=== PATIENT | male | born 1940 | race Caucasian/White ===

== ENCOUNTER 2016-07-24 17:57 | Emergency (ER) | payer MEDICARE, OTHER ==
[~2016-07-24 17:57] MED LIST: ASPIRIN CHEWABL81 MG PO; CARDURA 2MG TAB2 MG GT; COLACE 100MG C100 MG GT; KEPPRA 100100 MG/1 M GT; LIPITOR TAB 2020 MG GT; LISINOPRIL2.5 MG GT; METOPROLOL TART25 MG GT; MULTIVITAMINS1 EAC8 GT; NEURONTIN 400400 MG GT; OSMOLITE 1.21000 ML GT; PLAVIX 75 MG TA75 MG GT; PROMOD 946 ML BT1 EA GT; SENNA8.6 MG GT; TIZANIDINE HCL2 MG GT
[2016-07-24 18:52] LABS: HEMOGLOBIN 12.5 gm/dl (14.0-17.5); RED BLOOD COUNT 4.91 M/UL (4.20-5.50); WHITE BLOOD COUNT 19.1 K/UL (4.5-11.0)
[2016-07-24 19:21] LABS: BUN/CREATININE RATIO 29 (0-10)
== END 2016-07-24 18:55 ==
LOC: ER1 17:57
PROVIDERS: Emergency Medicine
DX: G40.901 Epilepsy, unspecified, not intractable, with status epilepticus (principal); A41.9 Sepsis, unspecified organism
CPT/HCPCS: 36415; 70450; 71010; 80053; 82550; 82553; 82962; 83605; 83874; 83880; 84484; 85025; 85610; 85730; 87040; 93005; 96361; 96372; 96374; 96375; 99291; J0692; J1265; J1953; J2060; J3370; J7050

== ENCOUNTER 2016-10-01 21:25 | Inpatient (IN) | payer MEDICARE, OTHER ==
[~2016-10-01] VITALS: Ht 177.8 cm; Wt 58.5 kg
[2016-10-01 22:29] LABS: HEMOGLOBIN 13.3 gm/dl (14.0-17.5); RED BLOOD COUNT 5.16 M/UL (4.20-5.50); WHITE BLOOD COUNT 17.2 K/UL (4.5-11.0)
[2016-10-01 22:46] LABS: BUN/CREATININE RATIO 31 (0-10)
[2016-10-02 05:55] LABS: HEMOGLOBIN 13.2 gm/dl (14.0-17.5); RED BLOOD COUNT 5.08 M/UL (4.20-5.50); WHITE BLOOD COUNT 14.5 K/UL (4.5-11.0)
[2016-10-02 06:13] LABS: BUN/CREATININE RATIO 30 (0-10)
[2016-10-02] MEDS ORDERED: SODIUM CHLORI1000 MG PEG (21:49)
[2016-10-02] MEDS ORDERED: MILK OF MAGNESI30 ML GT (21:50)
[2016-10-02] MEDS ORDERED: TYLENOL W/CODEIN1 E1 PO (21:51)
[2016-10-02] MEDS ORDERED: DULCOLAX10 MG PR ×2 (21:52→21:55)
[2016-10-02] MEDS ORDERED: BIOTENE MOIST44.3 ML MM (21:52)
[2016-10-03 01:02] LABS: ACINETOBACTER BAUMANNII Not Detected (Negative); CANDIDA ALBICANS Not Detected (Negative); CANDIDA KRUSEI Not Detected (Negative); CANDIDA TROPICALIS Not Detected (Negative); ENTEROCOCCUS Not Detected (Negative); ESCHERICHIA COLI Not Detected (Negative); HAEMOPHILUS INFLUENZAE Not Detected (Negative); KLEBSIELLA OXYTOCA Not Detected (Negative); KLEBSIELLA PNEUMONIAE Not Detected (Negative); KPC-CARBAPENEM-RESISTANCE GENE Not Detected (Negative); PROTEUS Not Detected (Negative); PSEUDOMONAS AERUGINOSA Not Detected (Negative); SERRATIA MARCESANS Not Detected (Negative); STAPHYLOCOCCUS AUREUS Not Detected (Negative); STREP AGALACTIAE (GROUP B) Not Detected (Negative); STREP PYOGENES (GROUP A) Not Detected (Negative); STREPTOCOCCUS Not Detected (Negative); vanA/B (VANCOMYCIN RESIST GENE Not Detected (Negative)
[2016-10-03 02:54] LABS: STAPHYLOCOCCUS DETECTED (Negative); mecA (METHICILLIN RESIST GENE DETECTED (Negative)
[2016-10-03 06:55] LABS: HEMOGLOBIN 10.6 gm/dl (14.0-17.5); RED BLOOD COUNT 4.16 M/UL (4.20-5.50); WHITE BLOOD COUNT 8.3 K/UL (4.5-11.0)
[2016-10-03 07:06] LABS: BUN/CREATININE RATIO 48 (0-10)
[2016-10-04 05:33] LABS: HEMOGLOBIN 10.6 gm/dl (14.0-17.5); RED BLOOD COUNT 4.15 M/UL (4.20-5.50)
[2016-10-04 05:35] LABS: WHITE BLOOD COUNT 6.2 K/UL (4.5-11.0)
[2016-10-04 05:57] LABS: BUN/CREATININE RATIO 38 (0-10)
== END 2016-10-04 08:00 | DRG 177 ==
LOC: ER1 21:25 → M/S 10-02 02:00 → ZEROF 10-02 02:00 → M/S 10-02 20:50
PROVIDERS: Family Medicine; Internal Medicine; ADMIT Emergency Medicine
DX: J69.0 Pneumonitis due to inhalation of food and vomit (principal); J96.21 Acute and chronic respiratory failure with hypoxia; G93.41 Metabolic encephalopathy; I69.351 Hemiplegia and hemiparesis following cerebral infarction affecting right dominant side; E87.1 Hypo-osmolality and hyponatremia; I50.22 Chronic systolic (congestive) heart failure; I69.320 Aphasia following cerebral infarction; I69.391 Dysphagia following cerebral infarction; R13.10 Dysphagia, unspecified; I69.398 Other sequelae of cerebral infarction; M24.541 Contracture, right hand; E87.5 Hyperkalemia; E86.0 Dehydration; G40.909 Epilepsy, unspecified, not intractable, without status epilepticus; I25.10 Atherosclerotic heart disease of native coronary artery without angina pectoris; I11.0 Hypertensive heart disease with heart failure; I73.9 Peripheral vascular disease, unspecified; E78.5 Hyperlipidemia, unspecified; K21.9 Gastro-esophageal reflux disease without esophagitis; G47.33 Obstructive sleep apnea (adult) (pediatric); F03.90 Unspecified dementia, unspecified severity, without behavioral disturbance, psychotic disturbance, mood disturbance, and anxiety; I25.2 Old myocardial infarction; Z95.1 Presence of aortocoronary bypass graft; Z87.820 Personal history of traumatic brain injury; Z66 Do not resuscitate; Z74.01 Bed confinement status; Z93.1 Gastrostomy status; Z79.02 Long term (current) use of antithrombotics/antiplatelets; Z79.82 Long term (current) use of aspirin; Z79.1 Long term (current) use of non-steroidal anti-inflammatories (NSAID); Z79.891 Long term (current) use of opiate analgesic; Z79.899 Other long term (current) drug therapy; Z89.611 Acquired absence of right leg above knee; Z98.890 Other specified postprocedural states
CPT/HCPCS: 36415; 70450; 71010; 80048; 80053; 81001; 83605; 84132; 85025; 85027; 85610; 87040; 87070; 87077; 87081; 87150; 87186; 87205; 94640; 94664; 96365; 96366; 96367; 96375; 96376; 99285; C9113; J1650; J2543; J3370; J7030; J7050; J7070

== ENCOUNTER 2016-10-09 18:21 | Inpatient (IN) | payer MEDICARE, OTHER ==
[~2016-10-09] VITALS: Ht 177.8 cm; Wt 58.5 kg
[~2016-10-09 18:21] MED LIST changes: +BIOTENE MOIST44.3 ML MM; +DULCOLAX10 MG PR; +MILK OF MAGNESI30 ML GT; +SODIUM CHLORI1000 MG PEG; +TYLENOL W/CODEIN1 E1 PO
[2016-10-09 18:49] LABS: RED BLOOD COUNT 5.07 M/UL (4.20-5.50); WHITE BLOOD COUNT 16.4 K/UL (4.5-11.0)
[2016-10-09 19:02] LABS: BUN/CREATININE RATIO 27 (0-10)
[2016-10-09 19:06] LABS: HEMOGLOBIN 13.1 gm/dl (14.0-17.5)
[2016-10-10 07:09] LABS: HEMOGLOBIN 11.9 gm/dl (14.0-17.5); RED BLOOD COUNT 4.64 M/UL (4.20-5.50); WHITE BLOOD COUNT 17.4 K/UL (4.5-11.0)
[2016-10-10] MEDS ORDERED: TYLENOL W/CODEIN1 E1 GT (12:06)
[2016-10-11 05:24] LABS: WHITE BLOOD COUNT 14.1 K/UL (4.5-11.0)
[2016-10-11 05:38] LABS: HEMOGLOBIN 9.9 gm/dl (14.0-17.5); RED BLOOD COUNT 3.88 M/UL (4.20-5.50)
[2016-10-12 03:53] LABS: RED BLOOD COUNT 3.56 M/UL (4.20-5.50); WHITE BLOOD COUNT 12.2 K/UL (4.5-11.0)
[2016-10-13 05:54] LABS: HEMOGLOBIN 8.6 gm/dl (14.0-17.5); RED BLOOD COUNT 3.38 M/UL (4.20-5.50); WHITE BLOOD COUNT 13.2 K/UL (4.5-11.0)
[2016-10-14] MEDS ORDERED: AUGMENTIN 875-1 EACH PO (19:22)
[2016-10-14] MEDS ORDERED: IPRAT-ALBUT 0.5-3 ML INH (19:23)
[2016-10-14] MEDS ORDERED: ROBINUL TAB 1 MG1 MG PO (19:26)
== END 2016-10-14 22:50 | disposition home health service (06) | DRG 871 ==
LOC: ER1 18:21 → PROG CARE 21:16 → ZEROF 21:16 → PROG CARE 10-10 17:35
PROVIDERS: Family Medicine; Internal Medicine Cardiovascular Disease; Internal Medicine Nephrology; ADMIT Internal Medicine
DX: A41.9 Sepsis, unspecified organism (principal); J96.21 Acute and chronic respiratory failure with hypoxia; N17.0 Acute kidney failure with tubular necrosis; R53.2 Functional quadriplegia; R65.21 Severe sepsis with septic shock; J69.0 Pneumonitis due to inhalation of food and vomit; I50.22 Chronic systolic (congestive) heart failure; E87.1 Hypo-osmolality and hyponatremia; Z66 Do not resuscitate; E53.0 Riboflavin deficiency; E87.4 Mixed disorder of acid-base balance; M62.82 Rhabdomyolysis; Z51.5 Encounter for palliative care; T83.098A Other mechanical complication of other urinary catheter, initial encounter; R31.0 Gross hematuria; E86.0 Dehydration; E86.1 Hypovolemia; Y92.239 Unspecified place in hospital as the place of occurrence of the external cause; F03.90 Unspecified dementia, unspecified severity, without behavioral disturbance, psychotic disturbance, mood disturbance, and anxiety; G47.33 Obstructive sleep apnea (adult) (pediatric); G40.909 Epilepsy, unspecified, not intractable, without status epilepticus; I25.10 Atherosclerotic heart disease of native coronary artery without angina pectoris; Z95.1 Presence of aortocoronary bypass graft; K21.9 Gastro-esophageal reflux disease without esophagitis; I73.9 Peripheral vascular disease, unspecified; Z74.01 Bed confinement status; R41.82 Altered mental status, unspecified; Z89.611 Acquired absence of right leg above knee; E87.5 Hyperkalemia; Z87.820 Personal history of traumatic brain injury; Y95 Nosocomial condition; Z93.1 Gastrostomy status; I27.2 Other secondary pulmonary hypertension; M60.9 Myositis, unspecified; S90.822A Blister (nonthermal), left foot, initial encounter; D50.9 Iron deficiency anemia, unspecified; Z88.8 Allergy status to other drugs, medicaments and biological substances; Z79.82 Long term (current) use of aspirin; Z79.891 Long term (current) use of opiate analgesic; Z79.1 Long term (current) use of non-steroidal anti-inflammatories (NSAID); Z79.899 Other long term (current) drug therapy
CPT/HCPCS: ECHO; 36415; 36600; 70450; 71010; 80048; 80053; 80202; 81001; 82550; 82553; 82607; 82800; 82803; 83605; 83690; 83735; 83874; 83880; 84300; 84439; 84443; 84484; 85025; 85027; 85610; 85730; 87040; 87070; 87081; 87086; 87205; 93005; 93306; 94640; 94660; 94664; 94668; 96361; 96374; 96375; 99285; J1644; J1815; J1940; J1953; J1956; J2270; J2405; J2543; J2930; J3370; J7030; J7050; J7070; P9047